=== PATIENT | male | born 1935 | race Caucasian/White ===

== ENCOUNTER 2016-08-22 14:59 | Emergency (ER) | payer MEDICARE, BC ==
[2016-08-22] MEDS ORDERED: NS 1,000 ML IV ONE ×2 (15:05→15:10)
[2016-08-22] MEDS ORDERED: SODIUM CHLORIDE 0.9% 3 ML FLUSH FLUSH PRN (15:10)
[2016-08-22 15:13] VITALS: TEMP 99
--- NOTE | 2016-08-22 15:15 | EDPRACDOC ---
- General Information Stated Complaint: UNRESPONSIVE Time Seen by Provider: 08/22/16 15:05 Information Source: Family Mode Of Arrival: Car Home Medications: Home Medications Clopidogrel Bisulfate [Plavix] 75 mg PO DAILY 04/26/14 Gabapentin [Neurontin] 300 mg PO QID 05/29/15 Lisinopril [Zestril] 40 mg PO DAILY 05/29/15 MetFORMIN (Immediate Release) [GLUCOPHAGE Immed Release] 1,000 mg PO BID Pravastatin [Pravachol] 80 mg PO DAILY 05/29/15 Meloxicam [Mobic] 7.5 mg PO BID 08/22/16 Metoprolol Succinate (XL) [Toprol Xl] 100 mg PO DAILY 08/22/16 Allergies/Adverse Reactions: Allergies Allergy/AdvReac Type Severity Reaction Status Date / Time codeine Allergy Unknown Nausea/Vomi Verified 08/22/16 15:11 ting - History of Present Illness Onset: [employer] Exact Onset of Symptoms: Unknown HPI: PT WAS AT WORK TODAY WITH HIS SON. HIS SON SAID THAT HE TOLD HIM THAT HE WAS NOT FEELING WELL AND WENT TO SIT DOWN IN THE TRUCK. SON SAID PT HAD A STARING SPELL WHERE HE WAS NOT RESPONSIVE. EMS WAS CALLED TO THE SCENE AND SBP 80. THE PT REFUSED TO COME TO THE ED BY AMBULANCE. THE PT'S SON DROVE HIM HERE AND EN ROUTE, HE PASSED OUT AGAIN. THE PT IS OBTUNDED AND IS UNABLE TO GIVE ANY HX. Symptoms began: Suddenly Duration: Since Onset Symptoms Currently: Reports: Still Present Altered Quality: Reports: Decreased Alertness Altered Severity: Reports: Severe, Unresponsive Relevant History: Reports: Diabetes ED Past Medical History - Patient Medical History Neurological History: Reports: Cerebrovascular Accident Cardiac History: Reports: Hypertension Systemic History: Reports: Diabetes Surgical History: Reports: Cholecystectomy - Social Medical History Smoking Status: Never smoker ETOH: None Substance Abuse: None Lives In: Home EDM Review of Systems - Review of Systems ROS Unobtainable: Yes Review of systems cannot be obtained due to the patient's medical condition - Physical Exam Constitutional: Distress, Decreased Consciousness Oriented to: Unable to Test Last recorded Vital Signs: Last Vital Signs Temp 99 F 08/22/16 15:00 Pulse 74 08/22/16 15:00 Resp 14 08/22/16 15:00 BP 65/50 L 08/22/16 15:00 Pulse Ox 93 08/22/16 15:00 Oxygen Pulse Oxygen Saturation 93 O2 Device Room Air Oxygen Flow Rate Fraction of Inspired Oxygen ( FIO2) - HEENT Head: Normal ( normocephalic) Eye Exam: Normal (PERRL, EOMI, Sclera white) Oropharynx: Normal (Pharynx:Moist without exudate,Gums-no swelling) ENT EAC: Normal TMJ: Normal Nose: No Symptoms Reported (septum midline) Neck: Normal (FROM, trachea at midline) - Respiratory/Cardiovascular Respiratory: Normal - CTA (BBS clear to auscultation without adventitious sounds ) Cardiovascular: Normal (RRR without murmur, gallop or rub) - GI Auscultation: Normal (NABS) Palpation: Normal (Soft,No rebound or guarding, non distended) Tenderness: Non tender Vera's Sign: Negative - Musculoskeletal Back: Normal (Non-Tender) Extremities: Normal (Normal tone, Pulses 2+ No cyanosis or edema, FROM) - Integumentary Skin: Normal, Warm, Dry Lymphatics: Normal (no adenopathy) - Neurologic Memory Impaired: Unable to Test Motor Function: Unable to Test Cranial Nerve: Unable to Test Cerebellar: Unable to Test - Re-evaluation Re-evaluation 1 Re-evaluation Time: 17:38 (PT IS AWAKE AND ALERT. NO COMPLAINTS. BP NL.) - Results 08/22/16 15:05 08/22/16 15:05 POC Capillary Glucose 142 mg/dL (70-99) H 08/22/16 15:04 Lab Results 08/22/16 15:04 POC Capillary Glucose 142 H - EKG EKG #1 EKG Time: 15:04 -: Yes EKG interpreted by me Rate: bpm: 70 [place]: Normal Rhythm: NSR Block: None Hypertrophy: None ST: Normal Comparison: 03/06/10 - Diagnostic Imaging Head Image interpreted by: Radiologist Atrophy with small vessel chronic ischemic changes of deep cerebral white matter. No acute intracranial abnormalities. Abdomen Image interpreted by: Radiologist IMPRESSION: 1. No acute findings in the chest, abdomen or pelvis to account for the patient's presenting symptoms. 2. However, there is a 5 mm calculus in the proximal third of the right ureter just beyond the right ureteropelvic junction. At this time, this is not associated with proximal hydroureteronephrosis to indicate obstruction. Additional nonobstructive calculi are present in the left renal collecting system measuring up to 7 mm in the lower pole. 3. No evidence of clinically significant central, lobar or segmental sized pulmonary embolism. 4. Atherosclerosis, including left main and 3 vessel coronary artery disease. Assessment for potential risk factor modification, dietary therapy or pharmacologic therapy may be warranted, if clinically indicated. 5. Additional incidental findings, as above. Decision Time to Discharge: 17:39 - Departure Yes I personally saw and evaluated the patient. Disposition: Home Condition: Fair Final Diagnosis: Hypotension, Kidney stone, Coronary artery calcification seen on CT scan Instructions: Kidney Stones (ED) Education/Counseling Given To: Patient, Family Member Education/Counseling Given Regarding: Diagnosis, Treatment, Follow Up Referrals: Hudson Dominguez MD [Primary Care Provider] - One Week Chaz Reynolds II, MD [Staff Physician] - One Week Joss Loera MD [Staff Physician] - One Week Prescriptions: No Action Clopidogrel Bisulfate [Plavix] 75 mg PO DAILY Pravastatin [Pravachol] 80 mg PO DAILY MetFORMIN (Immediate Release) [GLUCOPHAGE Immed Release] 1,000 mg PO BID Lisinopril [Zestril] 40 mg PO DAILY Gabapentin [Neurontin] 300 mg PO QID Metoprolol Succinate (XL) [Toprol Xl] 100 mg PO DAILY Meloxicam [Mobic] 7.5 mg PO BID Additional Instructions: HOLD METOPROLOL AND LISINOPRIL.
[2016-08-22 15:21] LABS: AUTOMATED BASOPHIL 0.7 % (0-2); AUTOMATED EOSINOPHIL 2.3 % (0-5); AUTOMATED LYMPH 18.8 % (17-44); AUTOMATED MONOCYTE 6.7 % (3-10); AUTOMATED NEUTROPHIL 71.5 % (45-76); MPV 8.8 fL (7.4-10.4)
[2016-08-22 15:23] LABS: LEUKOCYTES/URINE NEG (NEGATIVE); NITRITE/URINE NEG (NEGATIVE); URINE OCCULT BLOOD NEG (NEG/TRACE)
[2016-08-22 15:23] LABS: BLOOD UREA NITROGEN 20 MG/DL (9-20); CALC CORRECTED 9.1 MG/DL (8.4-10.2); CALCIUM 8.9 MG/DL (8.4-10.2); CALCULATED OSMOLALITY 274 MOs/Kg (270-290); CHLORIDE 104 mEq/L (98-107); GLUCOSE 146 mg/dL (70-99); SODIUM LEVEL 139 mEq/L (137-146); TOTAL PROTEIN 6.3 G/DL (6.3-8.2)
[2016-08-22 15:25] VITALS: BMI 31.1
[2016-08-22 15:29] LABS: PARTIAL THROMB. TIME 27.9 SEC (22-35); PT-INR 1.1
--- NOTE | 2016-08-22 15:36 | DIRPT ---
CLINICAL DATA: Altered mental status EXAM: PORTABLE CHEST 1 VIEW COMPARISON: March 06, 2010 FINDINGS: There is no edema or consolidation. The heart size and pulmonary vascular normal. No adenopathy. No bone lesions. IMPRESSION: No edema or consolidation. Electronically Signed By: Akbar Tam III, M.D. On: 08/22/2016 15:33
[2016-08-22] MEDS ORDERED: Pharmacy Review for Metformin - IV Contrast Given SCH (16:00)
--- NOTE | 2016-08-22 17:19 | DIRPT ---
CLINICAL DATA: Mental status changes, became weak when working outside, refused EMS then became unresponsive and was brought the hospital EXAM: CT HEAD WITHOUT CONTRAST TECHNIQUE: Contiguous axial images were obtained from the base of the skull through the vertex without intravenous contrast. COMPARISON: 11/16/2010 FINDINGS: Generalized atrophy. Normal ventricular morphology. No midline shift or mass effect. Small vessel chronic ischemic changes of deep cerebral white matter. No intracranial hemorrhage, mass lesion, or acute infarction. Visualized paranasal sinuses and mastoid air cells clear. Bones unremarkable. Mild atherosclerotic calcification of internal carotid and vertebral arteries at skullbase. IMPRESSION: Atrophy with small vessel chronic ischemic changes of deep cerebral white matter. No acute intracranial abnormalities. Electronically Signed By: Genaro Salcedo M.D. On: 08/22/2016 17:16
--- NOTE | 2016-08-22 17:32 | DIRPT ---
CLINICAL DATA: 81-year-old male with history of hypo tension. Weakness. Altered mental status. Unresponsive. EXAM: CT ANGIOGRAPHY CHEST CT ABDOMEN AND PELVIS WITH CONTRAST TECHNIQUE: Multidetector CT imaging of the chest was performed using the standard protocol during bolus administration of intravenous contrast. Multiplanar CT image reconstructions and MIPs were obtained to evaluate the vascular anatomy. Multidetector CT imaging of the abdomen and pelvis was performed using the standard protocol during bolus administration of intravenous contrast. CONTRAST: 100 mL of Isovue 370. COMPARISON: CT the abdomen and pelvis 03/04/2012. FINDINGS: CTA CHEST FINDINGS Mediastinum/Lymph Nodes: Study is limited by considerable patient respiratory motion. With these limitations in mind, there are no central, lobar or segmental sized pulmonary emboli identified. Smaller subsegmental sized emboli cannot be entirely excluded. Heart size is mildly enlarged. There is no significant pericardial fluid, thickening or pericardial calcification. There is atherosclerosis of the thoracic aorta, the great vessels of the mediastinum and the coronary arteries, including calcified atherosclerotic plaque in the left main, left anterior descending, left circumflex and right coronary arteries. No acute abnormality of the thoracic aorta. No pathologically enlarged mediastinal or hilar lymph nodes. Multiple borderline enlarged left hilar lymph nodes measuring up to 9 mm in short axis are noted, but are nonspecific. Esophagus is unremarkable in appearance. No axillary lymphadenopathy. Lungs/Pleura: No pneumothorax. No acute consolidative airspace disease. No pleural effusions. No definite suspicious appearing pulmonary nodules or masses) study is limited by considerable patient respiratory motion). Minimal dependent atelectasis in the lower lobes of the lungs bilaterally. Musculoskeletal/Soft Tissues: Bilateral gynecomastia. There are no aggressive appearing lytic or blastic lesions noted in the visualized portions of the skeleton. CT ABDOMEN and PELVIS FINDINGS Hepatobiliary: No cystic or solid hepatic lesions. No intra or extrahepatic biliary ductal dilatation. Status post cholecystectomy. Pancreas: No pancreatic mass. No pancreatic ductal dilatation. No pancreatic or peripancreatic fluid or inflammatory changes. Spleen: Splenule adjacent to the splenic hilum. Otherwise, unremarkable. 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 Left adrenal gland is normal in appearance. There are 2 nonobstructive calculi in the lower pole collecting system of the left kidney, largest of which measures 7 mm. In addition, there is a 5 mm calculus in the proximal third of the right ureter just beyond the right ureteropelvic junction (image 164 of series 3). At this time, there is no associated proximal hydroureteronephrosis to indicate significant urinary tract obstruction. Mild multifocal cortical thinning in the kidneys bilaterally. Exophytic low-attenuation lesion measuring 3.6 cm in the lower pole of the left kidney is compatible with a simple cyst. Urinary bladder is normal in appearance. Stomach/Bowel: Normal appearance of the stomach. No pathologic dilatation of small bowel or colon. Normal appendix. Vascular/Lymphatic: Atherosclerosis throughout the abdominal and pelvic vasculature, without evidence of aneurysm or dissection. No lymphadenopathy noted in the abdomen or pelvis. Reproductive: Prostate gland is enlarged measuring 4.4 x 6.7 cm. Seminal vesicles are unremarkable in appearance. Other: No significant volume of ascites. No pneumoperitoneum. Musculoskeletal: There are no aggressive appearing lytic or blastic lesions noted in the visualized portions of the skeleton. Review of the MIP images confirms the above findings. IMPRESSION: 1. No acute findings in the chest, abdomen or pelvis to account for the patient's presenting symptoms. 2. However, there is a 5 mm calculus in the proximal third of the right ureter just beyond the right ureteropelvic junction. At this time, this is not associated with proximal hydroureteronephrosis to indicate obstruction. Additional nonobstructive calculi are present in the left renal collecting system measuring up to 7 mm in the lower pole. 3. No evidence of clinically significant central, lobar or segmental sized pulmonary embolism. 4. Atherosclerosis, including left main and 3 vessel coronary artery disease. Assessment for potential risk factor modification, dietary therapy or pharmacologic therapy may be warranted, if clinically indicated. 5. Additional incidental findings, as above. Electronically Signed By: Reagan Monson M.D. On: 08/22/2016 17:29
[2016-08-22] MEDS ORDERED: SODIUM CHLORIDE 0.9% 3 ML FLUSH FLUSH SCH (18:00)
[2016-08-22 18:09] VITALS: BP 158/76; PULSE 62
== END 2016-08-22 18:06 | disposition home or self-care (01) ==
LOC: ED 14:59
DX: I95.9 Hypotension, unspecified (principal); N20.0 Calculus of kidney; I25.10 Atherosclerotic heart disease of native coronary artery without angina pectoris; I10 Essential (primary) hypertension; E11.9 Type 2 diabetes mellitus without complications; Z86.73 Personal history of transient ischemic attack (TIA), and cerebral infarction without residual deficits; Z79.899 Other long term (current) drug therapy; Z79.84 Long term (current) use of oral hypoglycemic drugs
CPT/HCPCS: 36415; 70450; 71010; 71275; 74174; 80053; 81001; 82962; 83605; 84484; 85025; 85610; 85730; 87040; 87086; 93005; 96360; 99284; A9698